=== PATIENT | male | born 1960 | race Caucasian/White ===

== ENCOUNTER 2018-02-16 11:29 | Inpatient (IN) | payer MEDICAID, BC ==
[2018-02-16 12:29] LABS: WHITE BLOOD COUNT 8.4 10^3/ul (4.8-10.8)
[2018-02-16 12:29] LABS: ABNORMAL IP MESSAGE 1; HEMATOCRIT 10.2 % (42.0-52.0); MEAN CORPUSCULAR HGB CONC 33.3 g/dl (32.0-37.0); MEAN PLATELET VOLUME 10.2 fl (7.4-10.4); NUCLEATED RED BLOOD CELLS% 1.2 /100WBC (0.0-0.0); PLATELET COUNT 100 10^3/UL (140-415); POSITIVE DIFF @See below; RED CELL DISTRIBUTION WIDTH 15.7 % (11.5-14.5)
[2018-02-16 12:35] LABS: HEMOGLOBIN 3.4 g/dl (14.0-18.0)
[2018-02-16 12:36] LABS: ADD MAN DIFF? YES; PATH REVIEW? YES
[2018-02-16 12:47] LABS: ALANINE AMINOTRANSFERASE 37 IU/L (13-69); ALBUMIN 2.8 g/dl (3.3-4.9); ALKALINE PHOSPHATASE 91 IU/L (42-121); ANION GAP 11 (8-16); ASPARTATE AMINO TRANSFERASE 59 IU/L (15-46); BILIRUBIN,INDIRECT 0.1 mg/dl (0-1.1); BILIRUBIN,TOTAL 0.1 mg/dl (0.2-1.3); BLOOD UREA NITROGEN 38 mg/dl (7-20); CALCIUM 8.1 mg/dl (8.4-10.2); CARBON DIOXIDE 30 mmol/L (21-31); CHLORIDE 98 mmol/L (97-110); CREATININE 3.51 mg/dl (0.61-1.24); GLUCOSE 114 mg/dl (70-220); INR 1.06; POTASSIUM 3.6 mmol/L (3.5-5.1); PROTIME 13.9 Sec (11.9-14.9); PT RATIO 1.1; SODIUM 135 mmol/L (135-144); TOTAL PROTEIN 4.8 g/dl (6.1-8.1)
[2018-02-16 12:48] LABS: PARTIAL THROMBOPLASTIN TIME 27.8 Sec (23.0-35.0)
[2018-02-16 13:00] LABS: TROPONIN-I 0.061 ng/ml (0.000-0.120)
[2018-02-16 13:55] LABS: ANISOCYTOSIS 2+ (0-0); BASOPHILS % (M) 1 % (0-2); ERYTHROBLAST% (NRBC) (M) 1 % (0-0); HYPOCHROMASIA 2+ (0-0); LYMPHOCYTES #M 0.2 10^3/ul (0.8-2.9); LYMPHOCYTES % (M) 3 % (15-51); MICROCYTOSIS 2+ (0-0); MONOCYTES % (M) 1 % (0-11); PLATELET ESTIMATE DECREASED; POIKILOCYTOSIS 2+ (0-0); POLYCHROMASIA 3+ (0-0); SEGMENTED NEUTROPHILS (M) % 95 % (39-77)
[2018-02-16 14:02] LABS: IMMEDIATE SPIN CROSSMATCH 1 4
[2018-02-16] MEDS ORDERED: NACL 0.9% 3 ML SYG IV (18:30)
[2018-02-16] MEDS: DEXTROSE 5%-0.45% NACL 1,000 ML IV (19:04)
[2018-02-16] MEDS: PANTOPRAZOLE IV 80 MG in SOD CHLORIDE 0.9% 100 ML IVPB (20:26)
[2018-02-16] MEDS: PANTOPRAZOLE IV 80 MG in SOD CHLORIDE 0.9% 100 ML IV (20:26)
[2018-02-16] MEDS: LEVETIRACETAM 500 MG (PMX) 100 ML IVPB (20:26)
[2018-02-16] MEDS: ONDANSETRON 4 MG INJ IV (22:23)
[2018-02-16] MEDS: morphine 2 MG INJ IV (22:24)
[2018-02-16] MEDS: HYDROCODONE/APAP (5/325) TAB PO (22:24)
[2018-02-16] MEDS: ZOLPIDEM 5 MG TAB PO (22:24)
[2018-02-17 05:16] LABS: ADD MAN DIFF? NO
[2018-02-17 05:20] LABS: ABNORMAL IP MESSAGE 1; BASOPHILS % 0.2 % (0.0-2.0); EOSINOPHILS % 0.2 % (0.0-7.0); HEMATOCRIT 28.3 % (42.0-52.0); HEMOGLOBIN 9.2 g/dl (14.0-18.0); LYMPHOCYTES # 0.3 10^3/ul (0.8-2.9); MEAN CORPUSCULAR HEMOGLOBIN 30.1 pg (29.0-33.0); MEAN CORPUSCULAR HGB CONC 32.5 g/dl (32.0-37.0); MEAN CORPUSCULAR VOLUME 92.5 fl (82.0-101.0); MEAN PLATELET VOLUME 10.3 fl (7.4-10.4); MONOCYTE # 0.3 10^3/ul (0.3-0.9); MONOCYTES % 6.4 % (0.0-11.0); NEUTROPHIL # 4.4 10^3/ul (1.6-7.5); NUCLEATED RED BLOOD CELLS # 0.2 10^3/ul (0.0-0.0); NUCLEATED RED BLOOD CELLS% 4.6 /100WBC (0.0-0.0); PLATELET COUNT 70 10^3/UL (140-415); POSITIVE DIFF @See below; RED BLOOD COUNT 3.06 10^6/ul (4.70-6.10); RED CELL DISTRIBUTION WIDTH 20.7 % (11.5-14.5)
[2018-02-17] MEDS: PANTOPRAZOLE IV 80 MG in SOD CHLORIDE 0.9% 100 ML IV ×2 (05:29→17:15)
[2018-02-17 05:35] LABS: HEMOGLOBIN A1C 4.9 % (0-5.9)
[2018-02-17 05:55] LABS: ANION GAP 16 (8-16); BLOOD UREA NITROGEN 50 mg/dl (7-20); CALCIUM 8.5 mg/dl (8.4-10.2); CARBON DIOXIDE 26 mmol/L (21-31); CHLORIDE 102 mmol/L (97-110); CHOL/HDL RATIO 1.8 RATIO; CHOLESTEROL 87 mg/dl (100-200); CREATININE 5.63 mg/dl (0.61-1.24); GLUCOSE 101 mg/dl (70-220); HDL CHOLESTEROL 47 mg/dl (28-71); LDL CHOLESTEROL,CALCULATED 11 mg/dl; MAGNESIUM 2.3 mg/dl (1.7-2.5); PHOSPHORUS 4.5 mg/dl (2.5-4.9); POTASSIUM 4.7 mmol/L (3.5-5.1); SODIUM 139 mmol/L (135-144); TRIGLYCERIDES 145 mg/dl (0-149)
[2018-02-17] MEDS: LEVETIRACETAM 500 MG (PMX) 100 ML IVPB ×2 (09:28→20:04)
[2018-02-17] MEDS: morphine 2 MG INJ IV (09:28)
[2018-02-17] MEDS: ACETAMINOPHEN 325 MG TAB PO (09:29)
[2018-02-17] MEDS: PIPER-TAZO 2.25 GM (PMX) 50 ML IVPB ×3 (10:31→21:58)
[2018-02-17] MEDS: BISACODYL (EC) 5 MG TAB PO ×2 (15:22→15:24)
[2018-02-17 15:45] LABS: IRON 22 ug/dl (35-150)
[2018-02-17 15:55] LABS: % IRON SATURATION 8 % SAT (22-52); TOTAL IRON BINDING CAPACITY 261 ug/dl (241-421)
[2018-02-17 16:26] LABS: HEPATITIS B SURFACE ANTIGEN NEGATIVE (NEGATIVE)
[2018-02-17 16:40] LABS: HEPATITIS B SURFACE ANTIBODY POSITIVE (NEGATIVE)
[2018-02-17 16:44] LABS: HEPATITIS C VIRAL ANTIBODY NEGATIVE (NEGATIVE)
[2018-02-17] MEDS: DEXTROSE 5%-0.45% NACL 1,000 ML IV (17:16)
[2018-02-17] MEDS: SEVELAMER CARBONATE 0.8 GM PKT PO (17:20)
[2018-02-17] MEDS: MAGNESIUM CITRATE 300 ML BTL PO (18:41)
[2018-02-17] MEDS: POLYETHYLENE GLYCOL 3350 119 GM POWDER PO (18:42)
[2018-02-17] MEDS: NIFEdipine (XL) 60 MG TAB PO (20:03)
[2018-02-17] MEDS: BENAZEPRIL 20 MG TAB PO (20:03)
[2018-02-17] MEDS ORDERED: LEVETIRACETAM 500 MG TAB PO (21:00)
[2018-02-18] MEDS: PANTOPRAZOLE IV 80 MG in SOD CHLORIDE 0.9% 100 ML IV ×4 (02:48→22:00)
[2018-02-18] MEDS: DEXTROSE 5%-0.45% NACL 1,000 ML IV (04:09)
[2018-02-18 05:08] LABS: ABNORMAL IP MESSAGE 1; HEMATOCRIT 25.1 % (42.0-52.0); HEMOGLOBIN 8.1 g/dl (14.0-18.0); MEAN CORPUSCULAR HEMOGLOBIN 30.6 pg (29.0-33.0); MEAN CORPUSCULAR HGB CONC 32.3 g/dl (32.0-37.0); MEAN CORPUSCULAR VOLUME 94.7 fl (82.0-101.0); MEAN PLATELET VOLUME 11.1 fl (7.4-10.4); NUCLEATED RED BLOOD CELLS% 0.6 /100WBC (0.0-0.0); PLATELET COUNT 58 10^3/UL (140-415); POSITIVE DIFF @See below; RED BLOOD COUNT 2.65 10^6/ul (4.70-6.10); RED CELL DISTRIBUTION WIDTH 21.9 % (11.5-14.5)
[2018-02-18 05:17] LABS: ADD MAN DIFF? YES
[2018-02-18 05:29] LABS: MAGNESIUM 2.4 mg/dl (1.7-2.5)
[2018-02-18 05:29] LABS: PHOSPHORUS 6.9 mg/dl (2.5-4.9)
[2018-02-18 05:36] LABS: ALANINE AMINOTRANSFERASE 56 IU/L (13-69); ALBUMIN 2.2 g/dl (3.3-4.9); ALBUMIN/GLOBULIN RATIO 0.95; ALKALINE PHOSPHATASE 69 IU/L (42-121); ANION GAP 15 (8-16); ASPARTATE AMINO TRANSFERASE 61 IU/L (15-46); BILIRUBIN,INDIRECT 0.6 mg/dl (0-1.1); BILIRUBIN,TOTAL 0.6 mg/dl (0.2-1.3); BLOOD UREA NITROGEN 62 mg/dl (7-20); CALCIUM 8.1 mg/dl (8.4-10.2); CARBON DIOXIDE 21 mmol/L (21-31); CHLORIDE 102 mmol/L (97-110); CREATININE 7.74 mg/dl (0.61-1.24); GLUCOSE 99 mg/dl (70-220); POTASSIUM 4.8 mmol/L (3.5-5.1); SODIUM 133 mmol/L (135-144); TOTAL PROTEIN 4.5 g/dl (6.1-8.1)
[2018-02-18] MEDS: PIPER-TAZO 2.25 GM (PMX) 50 ML IVPB ×3 (06:00→22:11)
[2018-02-18] MEDS: POLYETHYLENE GLYCOL 3350 119 GM POWDER PO (06:00)
[2018-02-18] MEDS: SEVELAMER CARBONATE 0.8 GM PKT PO ×3 (07:50→17:44)
[2018-02-18 08:30] LABS: ANISOCYTOSIS 2+ (0-0); BAND NEUTROPHILS #M 3.1 10^3/ul (0.0-0.6); BAND NEUTROPHILS % (M) 31 % (0-4); GIANT THROMBO% (M) 1 % (0-0); LYMPHOCYTES #M 0.7 10^3/ul (0.8-2.9); LYMPHOCYTES % (M) 7 % (15-51); MICROCYTOSIS 1+ (0-0); MONOCYTE #M 0.6 10^3/ul (0.3-0.9); MONOCYTES % (M) 6 % (0-11); PLATELET ESTIMATE DECREASED; POLYCHROMASIA 1+ (0-0); SEG NEUT #M 5.9 10^3/ul (1.6-7.5); SEGMENTED NEUTROPHILS (M) % 56 % (39-77); SMUDGE%M 13 % (0-0)
[2018-02-18] MEDS: THIAMINE 100 MG TAB PO (08:36)
[2018-02-18] MEDS: MULTIVIT/CA CARB/B CMPLX/FA TAB PO (08:36)
[2018-02-18] MEDS: BENAZEPRIL 20 MG TAB PO ×2 (08:36→20:58)
[2018-02-18] MEDS: NIFEdipine (XL) 60 MG TAB PO ×2 (08:36→20:57)
[2018-02-18] MEDS: LIDOCAINE 1% (MPF) 5 ML VIAL INJ (08:59)
[2018-02-18] MEDS: LEVETIRACETAM 500 MG (PMX) 100 ML IVPB ×2 (10:01→20:55)
[2018-02-18 11:46] LABS: MITOCHONDRIAL TB NEGATIVE (NEGATIVE)
[2018-02-18 13:18] LABS: ANA SCREEN NEGATIVE (NEGATIVE)
[2018-02-18] MEDS: LIDOCAINE 2% (SDV) 5 ML INJ (13:48)
[2018-02-18] MEDS: PROPOFOL 60 ML (13:48)
[2018-02-18] MEDS: EPOETIN 10000 UNITS/1 ML INJ (ESRD) SC (17:45)
[2018-02-19] MEDS: PANTOPRAZOLE IV 80 MG in SOD CHLORIDE 0.9% 100 ML IV (01:54)
[2018-02-19 05:07] LABS: ABNORMAL IP MESSAGE 1; HEMATOCRIT 24.2 % (42.0-52.0); HEMOGLOBIN 7.7 g/dl (14.0-18.0); MEAN CORPUSCULAR HEMOGLOBIN 30.1 pg (29.0-33.0); MEAN CORPUSCULAR HGB CONC 31.8 g/dl (32.0-37.0); MEAN CORPUSCULAR VOLUME 94.5 fl (82.0-101.0); MEAN PLATELET VOLUME 10.9 fl (7.4-10.4); NUCLEATED RED BLOOD CELLS% 0.3 /100WBC (0.0-0.0); PLATELET COUNT 66 10^3/UL (140-415); POSITIVE DIFF @See below; RED BLOOD COUNT 2.56 10^6/ul (4.70-6.10); RED CELL DISTRIBUTION WIDTH 21.3 % (11.5-14.5)
[2018-02-19 05:46] LABS: ADD MAN DIFF? YES; ANION GAP 11 (8-16); BLOOD UREA NITROGEN 34 mg/dl (7-20); CALCIUM 8.1 mg/dl (8.4-10.2); CARBON DIOXIDE 26 mmol/L (21-31); CHLORIDE 101 mmol/L (97-110); CREATININE 5.28 mg/dl (0.61-1.24); GLUCOSE 108 mg/dl (70-220); PHOSPHORUS 6.2 mg/dl (2.5-4.9); POTASSIUM 4.2 mmol/L (3.5-5.1); SODIUM 134 mmol/L (135-144)
[2018-02-19 05:46] LABS: MAGNESIUM 2.3 mg/dl (1.7-2.5)
[2018-02-19] MEDS: PIPER-TAZO 2.25 GM (PMX) 50 ML IVPB ×2 (05:48→13:30)
[2018-02-19] MEDS: DEXTROSE 5%-0.45% NACL 1,000 ML IV (05:50)
[2018-02-19 06:46] LABS: ANISOCYTOSIS 1+ (0-0); EOSINOPHILS % (M) 3 % (0-7); ERYTHROBLAST% (NRBC) (M) 1 % (0-0); LYMPHOCYTES #M 0.5 10^3/ul (0.8-2.9); LYMPHOCYTES % (M) 6 % (15-51); MICROCYTOSIS 1+ (0-0); MONOCYTE #M 0.1 10^3/ul (0.3-0.9); MONOCYTES % (M) 2 % (0-11); PLATELET ESTIMATE DECREASED; POIKILOCYTOSIS 1+ (0-0); POLYCHROMASIA 2+ (0-0); SEGMENTED NEUTROPHILS (M) % 89 % (39-77); SMUDGE%M 5 % (0-0); SPHEROCYTES 1+ (0-0)
[2018-02-19] MEDS: SOD CHLORIDE 0.9% 250 ML IV* (08:32)
[2018-02-19] MEDS: LEVETIRACETAM 500 MG (PMX) 100 ML IVPB ×2 (08:39→20:28)
[2018-02-19] MEDS: SEVELAMER CARBONATE 0.8 GM PKT PO ×3 (08:39→16:59)
[2018-02-19] MEDS: MULTIVIT/CA CARB/B CMPLX/FA TAB PO (08:39)
[2018-02-19] MEDS: NIFEdipine (XL) 60 MG TAB PO ×2 (08:40→20:27)
[2018-02-19] MEDS: THIAMINE 100 MG TAB PO (08:40)
[2018-02-19] MEDS: BENAZEPRIL 20 MG TAB PO ×2 (08:40→20:27)
[2018-02-19] MEDS ORDERED: AMIKACIN IV PER PHARMACY XX (15:00)
[2018-02-19] MEDS: AMIKACIN 350 MG in SOD CHLORIDE 0.9% 100 ML IVPB (16:58)
[2018-02-19] MEDS: PANTOPRAZOLE (EC) 40 MG TAB PO (16:59)
[2018-02-19] MEDS: hydrALAzine 20 MG INJ IV (19:41)
[2018-02-20 05:01] LABS: ADD MAN DIFF? NO
[2018-02-20 05:03] LABS: WHITE BLOOD COUNT 7.4 10^3/ul (4.8-10.8)
[2018-02-20 05:03] LABS: ABNORMAL IP MESSAGE 1; EOSINOPHILS % 0.3 % (0.0-7.0); HEMATOCRIT 23.5 % (42.0-52.0); HEMOGLOBIN 7.7 g/dl (14.0-18.0); LYMPHOCYTES # 0.3 10^3/ul (0.8-2.9); LYMPHOCYTES % 3.5 % (15.0-51.0); MEAN CORPUSCULAR HEMOGLOBIN 29.8 pg (29.0-33.0); MEAN CORPUSCULAR HGB CONC 32.8 g/dl (32.0-37.0); MEAN CORPUSCULAR VOLUME 91.1 fl (82.0-101.0); MEAN PLATELET VOLUME 9.6 fl (7.4-10.4); MONOCYTE # 0.5 10^3/ul (0.3-0.9); MONOCYTES % 6.6 % (0.0-11.0); NEUTROPHIL # 6.6 10^3/ul (1.6-7.5); NEUTROPHILS % 89.1 % (39.0-77.0); NUCLEATED RED BLOOD CELLS% 0.4 /100WBC (0.0-0.0); PLATELET COUNT 62 10^3/UL (140-415); POSITIVE DIFF @See below; RED BLOOD COUNT 2.58 10^6/ul (4.70-6.10); RED CELL DISTRIBUTION WIDTH 19.8 % (11.5-14.5)
[2018-02-20 05:24] LABS: PHOSPHORUS 5.6 mg/dl (2.5-4.9)
[2018-02-20 05:24] LABS: MAGNESIUM 2.4 mg/dl (1.7-2.5)
[2018-02-20 05:27] LABS: ALANINE AMINOTRANSFERASE 41 IU/L (13-69); ALBUMIN 2.4 g/dl (3.3-4.9); ALBUMIN/GLOBULIN RATIO 0.92; ALKALINE PHOSPHATASE 100 IU/L (42-121); ANION GAP 16 (8-16); ASPARTATE AMINO TRANSFERASE 31 IU/L (15-46); BILIRUBIN,INDIRECT 0.4 mg/dl (0-1.1); BILIRUBIN,TOTAL 0.4 mg/dl (0.2-1.3); BLOOD UREA NITROGEN 49 mg/dl (7-20); CALCIUM 8.4 mg/dl (8.4-10.2); CARBON DIOXIDE 22 mmol/L (21-31); CHLORIDE 95 mmol/L (97-110); CREATININE 6.78 mg/dl (0.61-1.24); GLUCOSE 99 mg/dl (70-220); POTASSIUM 4.2 mmol/L (3.5-5.1); PROTIME 14.4 Sec (11.9-14.9); PT RATIO 1.1; SODIUM 129 mmol/L (135-144)
[2018-02-20] MEDS: PANTOPRAZOLE (EC) 40 MG TAB PO ×2 (08:54→17:39)
[2018-02-20] MEDS: MULTIVIT/CA CARB/B CMPLX/FA TAB PO (08:55)
[2018-02-20] MEDS: SEVELAMER CARBONATE 0.8 GM PKT PO ×3 (08:55→17:39)
[2018-02-20] MEDS: THIAMINE 100 MG TAB PO (08:55)
[2018-02-20] MEDS: LEVETIRACETAM 500 MG (PMX) 100 ML IVPB ×2 (08:56→21:03)
[2018-02-20] MEDS: NIFEdipine (XL) 60 MG TAB PO ×2 (09:00→21:30)
[2018-02-20] MEDS: BENAZEPRIL 20 MG TAB PO ×2 (09:00→21:30)
[2018-02-20 10:49] LABS: IMMEDIATE SPIN CROSSMATCH 1 1
[2018-02-20] MEDS: HYDROCODONE/APAP (5/325) TAB PO ×2 (11:27→21:50)
[2018-02-20 13:02] LABS: SMOOTH MUSCLE AB SCREEN NEGATIVE (NEGATIVE)
[2018-02-20] MEDS: AMIKACIN 250 MG in SOD CHLORIDE 0.9% 100 ML IVPB (15:00)
[2018-02-20 17:16] LABS: AADO2 Arterial 196.3 mmHg (7.0-24.0); Allen Test ACCEPTAB; Arterial Blood Gas Oxygen Sat 88.6 mmHG (95.0-98.0); Arterial COHb 0.3 % (0.0-3.0); Arterial Fraction of Oxyhgb 88.1 % (93.0-99.0); Arterial HCO3 23.6 mmol/L (22.0-26.0); Arterial MetHb 0.3 % (0.0-1.5); Arterial Total Hemglobin 10.4 g/dl (12.0-18.0); Arterial pCO2 30.7 mmhg (35-45); MODE MASK - SIMPLE; Site Right Radial
[2018-02-20] MEDS: EPOETIN 10000 UNITS/1 ML INJ (ESRD) SC (17:34)
[2018-02-20] MEDS: ALBUTEROL 0.083% (NEB) 2.5 MG/3 ML AMP HHN ×2 (17:38→19:46)
[2018-02-20] MEDS: PROPRANOLOL 10 MG TAB PO (21:30)
[2018-02-21] MEDS: ALBUTEROL 0.083% (NEB) 2.5 MG/3 ML AMP HHN ×5 (01:43→21:40)
[2018-02-21 05:16] LABS: ADD MAN DIFF? NO
[2018-02-21 05:19] LABS: ABNORMAL IP MESSAGE 1; BASOPHILS % 0.2 % (0.0-2.0); EOSINOPHILS % 0.3 % (0.0-7.0); HEMATOCRIT 24.7 % (42.0-52.0); HEMOGLOBIN 8.2 g/dl (14.0-18.0); LYMPHOCYTES # 0.4 10^3/ul (0.8-2.9); LYMPHOCYTES % 5.7 % (15.0-51.0); MEAN CORPUSCULAR HEMOGLOBIN 29.6 pg (29.0-33.0); MEAN CORPUSCULAR HGB CONC 33.2 g/dl (32.0-37.0); MEAN CORPUSCULAR VOLUME 89.2 fl (82.0-101.0); MEAN PLATELET VOLUME 10.3 fl (7.4-10.4); MONOCYTE # 0.7 10^3/ul (0.3-0.9); MONOCYTES % 11.1 % (0.0-11.0); NEUTROPHIL # 5.2 10^3/ul (1.6-7.5); NEUTROPHILS % 81.8 % (39.0-77.0); NUCLEATED RED BLOOD CELLS% 0.6 /100WBC (0.0-0.0); PLATELET COUNT 67 10^3/UL (140-415); POSITIVE DIFF @See below; RED BLOOD COUNT 2.77 10^6/ul (4.70-6.10); RED CELL DISTRIBUTION WIDTH 19.3 % (11.5-14.5)
[2018-02-21 05:19] LABS: WHITE BLOOD COUNT 6.3 10^3/ul (4.8-10.8)
[2018-02-21 05:40] LABS: PHOSPHORUS 4.6 mg/dl (2.5-4.9)
[2018-02-21 05:40] LABS: ANION GAP 14 (8-16); BLOOD UREA NITROGEN 34 mg/dl (7-20); CALCIUM 8.3 mg/dl (8.4-10.2); CARBON DIOXIDE 27 mmol/L (21-31); CHLORIDE 94 mmol/L (97-110); CREATININE 4.91 mg/dl (0.61-1.24); GLUCOSE 114 mg/dl (70-220); MAGNESIUM 2.4 mg/dl (1.7-2.5); POTASSIUM 3.7 mmol/L (3.5-5.1); SODIUM 131 mmol/L (135-144)
[2018-02-21] MEDS: PANTOPRAZOLE (EC) 40 MG TAB PO ×2 (05:49→17:32)
[2018-02-21] MEDS: SEVELAMER CARBONATE 0.8 GM PKT PO ×3 (08:35→17:32)
[2018-02-21] MEDS: MULTIVIT/CA CARB/B CMPLX/FA TAB PO (08:36)
[2018-02-21] MEDS: BENAZEPRIL 20 MG TAB PO ×2 (08:36→20:22)
[2018-02-21] MEDS: THIAMINE 100 MG TAB PO (08:36)
[2018-02-21] MEDS: NIFEdipine (XL) 60 MG TAB PO ×2 (08:37→20:20)
[2018-02-21] MEDS: PROPRANOLOL 10 MG TAB PO ×2 (08:38→20:20)
[2018-02-21] MEDS: LEVETIRACETAM 500 MG (PMX) 100 ML IVPB ×2 (08:39→20:20)
[2018-02-21 10:47] LABS: B-TYPE NATRIURETIC PEPTIDE 24500 PG/ML (0-125)
[2018-02-22] MEDS: ALBUTEROL 0.083% (NEB) 2.5 MG/3 ML AMP HHN ×4 (01:45→19:37)
[2018-02-22] MEDS: PANTOPRAZOLE (EC) 40 MG TAB PO ×2 (05:09→17:39)
[2018-02-22 05:17] LABS: ADD MAN DIFF? NO
[2018-02-22 05:20] LABS: ABNORMAL IP MESSAGE 1; BASOPHILS % 0.3 % (0.0-2.0); EOSINOPHILS # 0.3 10^3/ul (0.0-0.5); EOSINOPHILS % 2.8 % (0.0-7.0); HEMATOCRIT 25.5 % (42.0-52.0); HEMOGLOBIN 8.5 g/dl (14.0-18.0); LYMPHOCYTES # 0.6 10^3/ul (0.8-2.9); LYMPHOCYTES % 6.2 % (15.0-51.0); MEAN CORPUSCULAR HEMOGLOBIN 29.3 pg (29.0-33.0); MEAN CORPUSCULAR HGB CONC 33.3 g/dl (32.0-37.0); MEAN CORPUSCULAR VOLUME 87.9 fl (82.0-101.0); MEAN PLATELET VOLUME 10.5 fl (7.4-10.4); MONOCYTE # 0.8 10^3/ul (0.3-0.9); MONOCYTES % 8.2 % (0.0-11.0); NEUTROPHIL # 7.5 10^3/ul (1.6-7.5); NEUTROPHILS % 81.5 % (39.0-77.0); NUCLEATED RED BLOOD CELLS% 0.2 /100WBC (0.0-0.0); PLATELET COUNT 92 10^3/UL (140-415); POSITIVE DIFF @See below; RED CELL DISTRIBUTION WIDTH 18.6 % (11.5-14.5)
[2018-02-22 05:20] LABS: WHITE BLOOD COUNT 9.2 10^3/ul (4.8-10.8)
[2018-02-22 05:37] LABS: PHOSPHORUS 4.1 mg/dl (2.5-4.9)
[2018-02-22 05:37] LABS: MAGNESIUM 2.4 mg/dl (1.7-2.5)
[2018-02-22 05:39] LABS: ANION GAP 12 (8-16); BLOOD UREA NITROGEN 47 mg/dl (7-20); CALCIUM 8.5 mg/dl (8.4-10.2); CARBON DIOXIDE 25 mmol/L (21-31); CHLORIDE 96 mmol/L (97-110); CREATININE 6.75 mg/dl (0.61-1.24); GLUCOSE 105 mg/dl (70-220); POTASSIUM 3.9 mmol/L (3.5-5.1); SODIUM 129 mmol/L (135-144)
[2018-02-22] MEDS: THIAMINE 100 MG TAB PO (08:26)
[2018-02-22] MEDS: SEVELAMER CARBONATE 0.8 GM PKT PO ×3 (08:26→17:39)
[2018-02-22] MEDS: MULTIVIT/CA CARB/B CMPLX/FA TAB PO (08:26)
[2018-02-22] MEDS: LEVETIRACETAM 500 MG (PMX) 100 ML IVPB ×2 (08:26→20:56)
[2018-02-22] MEDS: BENAZEPRIL 20 MG TAB PO ×2 (08:33→21:00)
[2018-02-22] MEDS: PROPRANOLOL 10 MG TAB PO ×2 (08:33→21:00)
[2018-02-22] MEDS: NIFEdipine (XL) 60 MG TAB PO ×2 (08:34→21:00)
[2018-02-23] MEDS: morphine 2 MG INJ IV (01:38)
[2018-02-23] MEDS: ALBUTEROL 0.083% (NEB) 2.5 MG/3 ML AMP HHN ×4 (02:51→19:59)
[2018-02-23] MEDS: HYDROCODONE/APAP (5/325) TAB PO ×2 (04:21→15:40)
[2018-02-23 05:08] LABS: ADD MAN DIFF? NO; BASOPHILS % 0.3 % (0.0-2.0); EOSINOPHILS # 0.3 10^3/ul (0.0-0.5); EOSINOPHILS % 2.9 % (0.0-7.0); HEMATOCRIT 27.3 % (42.0-52.0); HEMOGLOBIN 9.1 g/dl (14.0-18.0); LYMPHOCYTES # 0.9 10^3/ul (0.8-2.9); LYMPHOCYTES % 8.2 % (15.0-51.0); MEAN CORPUSCULAR HEMOGLOBIN 28.8 pg (29.0-33.0); MEAN CORPUSCULAR HGB CONC 33.3 g/dl (32.0-37.0); MEAN CORPUSCULAR VOLUME 86.4 fl (82.0-101.0); MEAN PLATELET VOLUME 10.5 fl (7.4-10.4); MONOCYTES % 8.6 % (0.0-11.0); NEUTROPHIL # 8.9 10^3/ul (1.6-7.5); NUCLEATED RED BLOOD CELLS% 0.2 /100WBC (0.0-0.0); PLATELET COUNT 143 10^3/UL (140-415); POSITIVE DIFF @See below; RED BLOOD COUNT 3.16 10^6/ul (4.70-6.10)
[2018-02-23 05:08] LABS: WHITE BLOOD COUNT 11.2 10^3/ul (4.8-10.8)
[2018-02-23 05:35] LABS: MAGNESIUM 2.7 mg/dl (1.7-2.5)
[2018-02-23 05:48] LABS: ANION GAP 16 (8-16); BLOOD UREA NITROGEN 58 mg/dl (7-20); CALCIUM 8.9 mg/dl (8.4-10.2); CARBON DIOXIDE 24 mmol/L (21-31); CHLORIDE 91 mmol/L (97-110); CREATININE 8.27 mg/dl (0.61-1.24); GLUCOSE 111 mg/dl (70-220); POTASSIUM 3.9 mmol/L (3.5-5.1); SODIUM 127 mmol/L (135-144)
[2018-02-23] MEDS: PANTOPRAZOLE (EC) 40 MG TAB PO ×2 (06:31→18:37)
[2018-02-23] MEDS: BENAZEPRIL 20 MG TAB PO ×2 (09:00→21:18)
[2018-02-23] MEDS: PROPRANOLOL 10 MG TAB PO ×2 (09:00→21:16)
[2018-02-23] MEDS: NIFEdipine (XL) 60 MG TAB PO ×2 (09:00→21:18)
[2018-02-23] MEDS: LEVETIRACETAM 500 MG (PMX) 100 ML IVPB ×2 (09:54→21:00)
[2018-02-23] MEDS: SEVELAMER CARBONATE 2.4 GM PKT PO ×3 (09:59→17:55)
[2018-02-23] MEDS: MULTIVIT/CA CARB/B CMPLX/FA TAB PO (09:59)
[2018-02-23] MEDS: THIAMINE 100 MG TAB PO (09:59)
[2018-02-23] MEDS: SEVELAMER CARBONATE 0.8 GM PKT PO ×3 (09:59→17:55)
[2018-02-23] MEDS: LIDOCAINE 1% (MPF) 5 ML VIAL INFIL (15:17)
[2018-02-23] MEDS: EPOETIN 10000 UNITS/1 ML INJ (ESRD) SC (18:36)
[2018-02-23] MEDS: AMIKACIN 250 MG in SOD CHLORIDE 0.9% 100 ML IVPB (18:37)
== END 2018-02-23 21:40 | disposition home or self-care (01) | DRG 377 ==
LOC: E/R 11:29 → MS1 02-17 20:20 → ICU 13:21
PROC: 0DBN8ZX Excision of Sigmoid Colon, Via Natural or Artificial Opening Endoscopic, Diagnostic (ICD-10-PCS; 2018-02-18 12:30)
PROC: 0DJ08ZZ Inspection of Upper Intestinal Tract, Via Natural or Artificial Opening Endoscopic (ICD-10-PCS; 2018-02-18 12:30)
PROC: 5A1D70Z Performance of Urinary Filtration, Intermittent, Less than 6 Hours Per Day (ICD-10-PCS; principal; 2018-02-18 13:15)
PROC: 30233N1 Transfusion of Nonautologous Red Blood Cells into Peripheral Vein, Percutaneous Approach (ICD-10-PCS; 2018-02-18 13:15)
DX: K92.1 Melena (principal); N18.6 End stage renal disease; A41.9 Sepsis, unspecified organism; J96.01 Acute respiratory failure with hypoxia; D62 Acute posthemorrhagic anemia; I12.0 Hypertensive chronic kidney disease with stage 5 chronic kidney disease or end stage renal disease; R18.8 Other ascites; K76.6 Portal hypertension; N02.8 Recurrent and persistent hematuria with other morphologic changes; I85.10 Secondary esophageal varices without bleeding; K92.0 Hematemesis; Z99.2 Dependence on renal dialysis; D63.1 Anemia in chronic kidney disease; G40.909 Epilepsy, unspecified, not intractable, without status epilepticus; K74.60 Unspecified cirrhosis of liver; D69.6 Thrombocytopenia, unspecified; I86.8 Varicose veins of other specified sites; K57.30 Diverticulosis of large intestine without perforation or abscess without bleeding; K70.11 Alcoholic hepatitis with ascites; K31.89 Other diseases of stomach and duodenum; K29.70 Gastritis, unspecified, without bleeding; K63.5 Polyp of colon; B96.20 Unspecified Escherichia coli [E. coli] as the cause of diseases classified elsewhere
CPT/HCPCS: 36415; 36430; 36600; 71045; 71250; 74018; 74176; 80048; 80053; 80061; 82728; 82803; 83036; 83540; 83735; 83880; 84100; 84484; 85025; 85610; 85730; 86038; 86255; 86706; 86709; 86803; 86850; 86900; 86901; 86920; 87040; 87081; 87340; 88305; 90935; 93005; 93306; 94640; 94664; 99291-25